=== PATIENT | female | born 1975 | race Caucasian/White ===

== ENCOUNTER → 2016-07-28 | Outpatient (CLI) | payer OTHER | END | disposition home or self-care (01) | LOC: MRI 10:04 → RAD 11:00 | DX: M54.12 Radiculopathy, cervical region (principal) | CPT/HCPCS: 72141 ==

== ENCOUNTER 2016-09-28 21:15 | Emergency (ER) | payer OTHER ==
[~2016-09-28] VITALS: Ht 154.9 cm; Wt 86.9 kg
[2016-09-28 23:44] VITALS: BP 169/99
[2016-09-29] MEDS ORDERED: LISINOPRIL-HCT1 EAC3 PO (14:36)
[2016-09-29] MEDS ORDERED: FIORICET 50-301 EACH PO (14:37)
[2016-09-29] MEDS ORDERED: PROMETHAZINE HC25 M1 PO (14:37)
[2016-09-29] MEDS ORDERED: MYSOLINE50 MG PO (14:38)
[2016-09-29] MEDS ORDERED: NEURONTIN100 MG PO (14:38)
[2016-09-29] MEDS ORDERED: TOPIRAMATE100 MG PO (14:39)
[2016-09-29] MEDS ORDERED: PROAIR HFA8.5 GM IH (14:39)
[2016-09-29] MEDS ORDERED: PRILOSEC20 MG PO (14:39)
[2016-09-29] MEDS ORDERED: ACTOS45 MG PO (14:40)
[2016-09-29] MEDS ORDERED: REPATHA SY140 MG/1 M SC (14:40)
[2016-09-29] MEDS ORDERED: LOW DOSE ASPIRI81 M1 PO (14:40)
[2016-09-29] MEDS ORDERED: PROBIOTIC1 EAC1 PO (14:40)
[2016-09-29] MEDS ORDERED: LEXAPRO10 MG PO (15:09)
== END 2016-09-28 23:50 | disposition home or self-care (01) ==
LOC: EME 21:15
DX: F41.9 Anxiety disorder, unspecified (principal); E11.9 Type 2 diabetes mellitus without complications; E78.5 Hyperlipidemia, unspecified; I10 Essential (primary) hypertension
CPT/HCPCS: 99281; 99284; J2060

== ENCOUNTER 2016-09-29 12:10 | Emergency (ER) | payer OTHER ==
[~2016-09-29] VITALS: Ht 154.9 cm; Wt 84.5 kg
[2016-09-29 13:43] LABS: ADD MIUA? YES; BILIRUBIN NEGATIVE; BLOOD NEGATIVE; COLOR YELLOW ((YELLOW)); GLUCOSE (STRIP) NEGATIVE; KETONES NEGATIVE; LEUKOCYTES NEGATIVE; NITRITE NEGATIVE; PROTEIN (STRIP) NEGATIVE; SPECIFIC GRAVITY 1.012 (1.000-1.030); UROBILINOGEN 0.2 MG/DL (0.2-1.0)
[2016-09-29 13:52] LABS: AMPHETAMINE NEGATIVE (500 ng/mL); BARBITURATES PRESUMPTIVE POSITIVE (200 ng/mL); BENZODIAZEPINES PRESUMPTIVE POSITIVE (150 ng/mL); COCAINE NEGATIVE (150 ng/mL); METHADONE NEGATIVE (200 ng/mL); METHAMPHETAMINE NEGATIVE (500 ng/mL); OPIATES (MORPHINE) NEGATIVE (100 ng/mL); OXYCODONE NEGATIVE (100 ng/mL); PHENCYCLIDINE NEGATIVE (25 ng/mL); PROPOXYPHENE NEGATIVE (300 ng/mL); THC CANNABINOIDS NEGATIVE (50 ng/mL); TRICYCLIC ANTIDEPRESSANTS NEGATIVE (300 ng/mL)
[2016-09-29 13:53] LABS: ADD MEDTOX COMMENT Y; INTERNAL CONTROLS VALID? YES
[2016-09-29 13:59] LABS: AMORPHOUS PHOSPHATE CRYSTALS 1+; BACTERIA 1+ /HPF; CRYSTALS PRESENT; EPITHELIAL CELLS RARE /HPF; MUCUS NONE SEEN /LPF; RED BLOOD CELLS NONE SEEN /HPF (0-5); UCUL ADDED? NO; WHITE BLOOD CELLS NONE SEEN /HPF (0-5)
[2016-09-29 14:00] LABS: BASOPHIL COUNT 0.1 K/uL (0-0.1); EOSINOPHIL (%) 0.8 % (0-5); EOSINOPHIL COUNT 0.1 K/uL (0-0.3); HEMATOCRIT 42.4 % (36.0-46.0); IMMATURE GRANULOCYTE (%) 0.7 % (0.0-0.7); IMMATURE GRANULOCYTE COUNT 0.1 K/uL; INSTRUMENT ABS NEUTROPHIL CT 4.9 K/uL; LYMPHOCYTE COUNT 2.7 K/uL (1.0-2.8); MCH 31.1 PG (29.0-34.0); MCV 91.6 FL (83-99); MEAN PLAT.VOLUME 9.4 uM^3 (9.5-12.4); MONOCYTE (%) 6.1 % (3-12); MONOCYTE COUNT 0.5 K/uL (0-0.8); NEUTROPHIL (%) 59.6 % (45-76); NEUTROPHIL COUNT 4.9 K/uL (1.8-6.4); PLATELET COUNT 304 K/uL (156-360); RBC DIS.WIDTH-CV 13.2 % (11.8-14.6); RBC DIS.WIDTH-SD 43.8 % (39-53); RED BLOOD COUNT 4.63 M/uL (3.80-5.20); WHITE BLOOD COUNT 8.3 K/uL (4.1-10.2)
[2016-09-29 14:09] LABS: CHLORIDE 105 mEq/L (99-109)
[2016-09-29 14:10] LABS: SODIUM 135 mEq/L (136-147)
[2016-09-29 14:12] LABS: GLUCOSE 109 mg/dL (70-99)
[2016-09-29 14:13] LABS: ANION GAP 11 MEQ/L (2-14)
[2016-09-29 14:14] LABS: TOTAL BILIRUBIN 0.2 mg/dL (0.0-1.0)
[2016-09-29 14:15] LABS: ALKALINE PHOSPHATASE 59 IU/L (3-129); SERUM ETHYL ALCOHOL < 10 mg/dL
[2016-09-29 14:16] LABS: GFR ESTIMATE (CALCULATED) > 59 mL/min/
[2016-09-29 14:17] LABS: UREA NITROGEN (BUN) 17 mg/dL (9-23)
[2016-09-29 14:28] LABS: BENZODIAZEPINES QUANT VALUE 0 NG/ML; BENZODIAZEPINES, URINE SCREEN Negative (200 ng/mL)
[2016-09-29] MEDS ORDERED: LISINOPRIL-HCT1 EAC3 PO (14:36)
[2016-09-29] MEDS ORDERED: FIORICET 50-301 EACH PO (14:37)
[2016-09-29] MEDS ORDERED: PROMETHAZINE HC25 M1 PO (14:37)
[2016-09-29] MEDS ORDERED: NEURONTIN100 MG PO (14:38)
[2016-09-29] MEDS ORDERED: MYSOLINE50 MG PO (14:38)
[2016-09-29] MEDS ORDERED: PROAIR HFA8.5 GM IH (14:39)
[2016-09-29] MEDS ORDERED: PRILOSEC20 MG PO (14:39)
[2016-09-29] MEDS ORDERED: TOPIRAMATE100 MG PO (14:39)
[2016-09-29] MEDS ORDERED: REPATHA SY140 MG/1 M SC (14:40)
[2016-09-29] MEDS ORDERED: LOW DOSE ASPIRI81 M1 PO (14:40)
[2016-09-29] MEDS ORDERED: PROBIOTIC1 EAC1 PO (14:40)
[2016-09-29] MEDS ORDERED: ACTOS45 MG PO (14:40)
[2016-09-29] MEDS ORDERED: LEXAPRO10 MG PO (15:09)
[2016-09-29 15:52] VITALS: BP 150/110
== END 2016-09-29 15:53 | disposition home or self-care (01) ==
LOC: EME 12:10
PROVIDERS: Emergency Medicine
DX: F41.0 Panic disorder [episodic paroxysmal anxiety] (principal); R44.1 Visual hallucinations; E11.9 Type 2 diabetes mellitus without complications; E78.5 Hyperlipidemia, unspecified; I10 Essential (primary) hypertension
CPT/HCPCS: 70450; 80053; 81003; 84999; 85025; 90839; 93005; 99281; 99284; G0480